=== PATIENT | female | born 1990 | race Caucasian/White ===

== ENCOUNTER → 2016-04-11 | Emergency (ER) | payer OTHER ==
[~2016-04-11] MED LIST: AMOXICILLIN PO; AMOXICILLIN500 M1 PO; BENTYL10 MG PO; CIPRO PO; CIPRO250 MG PO; DELSYM30 MG/5 M1 PO; DOXYCYCLINE PO; FAMOTIDINE PO; FLAGYL250 M1 PO; FLEXERIL PO; KETOPROFEN PO; ORUDIS75 M1 DOB; ORUDIS75 M1 PO; PHENERGAN25 M1 PO; PROMETHAZINE-D240 ML PO; PYRIDIUM100 MG PO; ULTRAM PO; VICODIN 5/1 TAB 5/50 PO; VICODIN 5/500 T1 TAB PO; ZOLOFT PO; ZYRTEC10 M2 PO; [UNRECOGNIZED DRUG - REMARK]
== END | disposition home or self-care (01) ==
LOC: CED 08:00
DX: Z53.21 Procedure and treatment not carried out due to patient leaving prior to being seen by health care provider (principal)